=== PATIENT | female | born 1985 | race Caucasian/White ===

== ENCOUNTER → 2022-06-24 13:25 | Outpatient (CLI) | payer BC, SELFPAY ==
--- NOTE | ~2022-06-24 | US_ITS ---
EXAMINATION: US thyroid DATE: 06/24/2022 13:39 INDICATION: Autoimmune thyroiditis. TECHNIQUE: Multiple ultrasound images of the thyroid were obtained. COMPARISON: None. FINDINGS: The right thyroid lobe measures 3.6 x 0.9 x 1.3 cm. The left thyroid lobe measures 3.9 x 1.1 x 1.2 c m. There is normal echotexture and echogenicity throughout the thyroid gland. No discrete nodules id entified. Normal vascular flow is present. IMPRESSION: 1. Normal thyroid. Reviewed, dictated and finalized at location A. IMPRESSION: 1. Normal thyroid.
== END ==
PROVIDERS: PCP Physician Assistant Medical; Visit Provider Physician Assistant Medical
DX: E06.3 Autoimmune thyroiditis (principal)
CPT/HCPCS: 76536